=== PATIENT | male | born 1945 | race Caucasian/White ===

== ENCOUNTER 2016-12-05 08:54 | Outpatient (CLI) | payer MEDICARE, BC ==
--- NOTE | 2016-12-05 10:05 | RAD ---
TWO VIEW CHEST: Indication: Pre-operative assessment. FINDINGS: There is no lobar consolidation. Cardiac silhouette is upper limits of normal in size. IMPRESSION: No acute process. POS: DENISSE
[2016-12-05 10:32] LABS: Mean Platelet Volume 7.7 fL (7.4-10.4); Red Blood Cell (RBC) Count 4.57 mill/uL (4.70-6.10); White Blood Cell (WBC) Count 6.1 thou/uL (4.8-10.8)
[2016-12-05 10:42] LABS: PTT 29.6 SEC (22.9-36.1); Prothrombin Time 12.8 SEC (12.0-14.7)
[2016-12-05 10:45] LABS: Anion Gap 11 mmol/L (10-20); BUN (Urea Nitrogen) 18 mg/dL (8.4-25.7); Calc. Creatinine Clearance 0 mL/min (70-130); Calcium 9.6 mg/dL (7.8-10.44); Carbon Dioxide 27 mmol/L (23-31); Chloride 106 mmol/L (98-107); Estimated GFR-MDRD 83
[2016-12-05 10:49] LABS: Bilirubin Negative (Negative); Blood, Urine Negative (Negative); Glucose, Urine (Dipstick) Negative (Negative); Ketone, Urine Negative (Negative); Nitrite Negative (Negative); Protein, Urine (Dipstick) Negative (Neg-Trace); Urobilinogen 0.2 mg/dL (0.2-1.0)
[2016-12-05 11:42] LABS: Bacteria/HPF None Seen HPF (None Seen); Hyaline Casts/LPF 0-3 HYALINE CAST LPF (0-3 Hyaline); RBC/HPF 0-3 HPF (0-3); Squamous Epithelial None Seen HPF (0-3); WBC/HPF None Seen HPF (0-3)
--- NOTE | 2016-12-05 15:09 | EKG ---
Test Reason : Blood Pressure : / mmHG Vent. Rate : 077 BPM Atrial Rate : 077 BPM P-R Int : 166 ms QRS Dur : 068 ms QT Int : 390 ms P-R-T Axes : 064 065 038 degrees QTc Int : 441 ms Poor data quality, interpretation may be adversely affected Sinus rhythm with Premature supraventricular complexes and Premature ventricular complexes or Fusion complexes Otherwise normal ECG Repeat ECG. Confirmed by VINCENZO VILLAFANA ([id number]) on 12/05/2016 3:08:27 PM Referred By: ESCOBAR KHALIL Confirmed By:VINCENZO VILLAFANA
== END 2016-12-05 08:55 | disposition home or self-care (01) ==
LOC: LABBT 08:54
PROVIDERS: ATTEND Orthopaedic Surgery
DX: Z01.818 Encounter for other preprocedural examination (principal); M16.12 Unilateral primary osteoarthritis, left hip
CPT/HCPCS: 71020; 80048; 81001; 85027; 85610; 85730; 86850; 86900; 86901; 87081; 93005; 93010

== ENCOUNTER 2016-12-05 09:00 | Inpatient (IN) | payer MEDICARE, BC ==
[2016-12-05 12:32] VITALS: BMI 28.6
[2016-12-12] MEDS ORDERED: CEFAZOLIN/Water 2 GM/20 ML SYRINGE ONE (06:10)
[2016-12-12] MEDS ORDERED: Tranexamic Acid 1,000 MG/100 ML BAG ONE ×2 (06:10→08:47)
[2016-12-12] MEDS ORDERED: Midazolam HCl 2 mg/2 ml Vial ONE ×2 (06:21→06:50)
[2016-12-12] MEDS ORDERED: Fentanyl 100 MCG/2 ML VIAL ONE (06:21)
[2016-12-12] MEDS ORDERED: Fentanyl 250 MCG/5 ML VIAL ONE (06:50)
[2016-12-12] MEDS ORDERED: traMADol HCl 50 MG TAB PO PRN ×3 (06:53→09:15)
[2016-12-12] MEDS ORDERED: Fentanyl 100 MCG/2 ML VIAL SLOW IVP PRN ×2 (06:53)
[2016-12-12] MEDS ORDERED: HYDROcodone/Acetaminophen 10/325 mg Tablet PO PRN ×2 (06:53)
[2016-12-12] MEDS ORDERED: ALPRAZolam 0.25 MG TAB PO PRN (06:55)
[2016-12-12] MEDS ORDERED: Ropivacaine 0.2% HCl/PF 20 ML ONE (06:56)
[2016-12-12] MEDS ORDERED: Glycopyrrolate 0.2 MG/ML 5 ML SYRINGE ONE (07:05)
[2016-12-12] MEDS ORDERED: ePHEDrine/0.9% NaCl/PF SYRINGE 50 mg/10 ml ONE (07:05)
[2016-12-12] MEDS ORDERED: Propofol 200 MG/20 ML VIAL ONE (07:05)
[2016-12-12] MEDS ORDERED: Lidocaine 2% PF 10 ML AMP (For Epidural Use) ONE (07:05)
[2016-12-12] MEDS ORDERED: Dexamethasone 20 MG/5 ML VIAL ONE (07:05)
[2016-12-12] MEDS ORDERED: Ondansetron HCl/PF 4 MG/2 ML Vial ONE (07:05)
[2016-12-12] MEDS ORDERED: Tranexamic Acid 1,000 MG in Sodium Chloride 0.9% 100 ML IVPB SCH (08:45)
--- NOTE | 2016-12-12 09:02 | OP ---
DATE OF PROCEDURE: 12/12/2016 PREOPERATIVE DIAGNOSIS: End-stage bicompartmental osteoarthritis, left hip. POSTOPERATIVE DIAGNOSIS: End-stage bicompartmental osteoarthritis, left hip. PROCEDURE: Press-fit left total hip arthroplasty. SURGEON: See Abad M.D. DIRECTOR OF LABOR RELATIONS: Jonah Domingo PA-C. ANESTHESIA: General via endotracheal tube augmented with indwelling epidural. ESTIMATED BLOOD LOSS: Less than 100. COMPONENTS USED: [facility] press-fit size 3.5 Accolade hip stem with a 52 mm Trident PSL press fit acetabular shell, 36 mm fixed bearing 10 degree polyethylene and a -5, 36 mm V40 metallic femoral head. FINDINGS: End-stage severe degenerative bicompartmental disease, bone on bone arthrosis, periarticu lar osteophyte formation, large serous effusion, and hypertrophic synovium. DRAINS: None. SPECIMENS: None. COMPLICATIONS: None. COUNTS: Correct. INDICATIONS FOR SURGERY: Dayron is a 71-year-old white male who has had progressive left groin and th igh pain amplified the last 5-7 years. He has failed conservative management and elected to proceed with total hip arthroplasty as definitive treatment of pain. PROCEDURE IN DETAIL: After informed consent was obtained in the preoperative holding area, the lilly ent was taken to the operative suite where general anesthesia was induced. The patient was then pos itioned in the lateral decubitus position. The hip was then prepped and draped in usual sterile fas hion. The patient received preoperative antibiotics. Prior to incision, time-out was called and al l members of the surgical team agreed upon site, surgeon, and patient. After this, a longitudinal i ncision was made directly over the trochanter, noted by palpation extending 2 fingerbreadths above a nd below the trochanter. The deeper subcutaneous layer was undermined with Bovie electrocautery. T he iliotibial band was encountered and incised sharply and the plane below this was developed bluntl y. A Charnley retractor was placed to hold this opened. The lateral aspect of the trochanter and t he abductor muscles were encountered and then reflected anteriorly off the trochanter using Bovie el ectrocautery. Once this was completed, the anterior capsule was then encountered and identified and copious capsulotomy was carried out, exposing the femoral neck and head. Dislocation maneuver was t hen performed and an in situ provisional neck cut was then made using the oscillating saw. Attentio n was then turned to acetabular preparation and sequential reaming was carried out up to the appropr iate diameter and a trial was then malleted into place with good firm resistance and no pullout. Th e permanent acetabular shell was then malleted squarely into place, as was the appropriate liner. O nce completed, the wound was copiously irrigated and attention was then turned to femoral preparatio n. Flexion and external rotation was performed of the exposed thigh and femoral elevators were then placed at the proximal aspect of the wound. Canal finder was used to establish the length of the ca nal and sequential reaming was carried out, followed by broaching. Once the appropriate stability w as established with the trial broaches with both flexion, extension and rotational stability, we did trial with neutral and 2 mm offset incremental necks. Once the appropriate size was decided upon, with good stability noted with flexion, extension, internal and external rotation and shuck being ne gative, we removed the femoral trial broach and malletted into place the permanent prosthesis with g ood firm fit, which was also stable to rotation. Again, the hip felt very stable to flexion, extens ion, internal and external rotation. Leg lengths appeared near anatomic clinically and we were quit e happy with prosthesis placement. Copious irrigation was then carried out through the entirety of the wound. Primary closure of the abductors was accomplished with interrupted #2 Vicryl figure-of-e ight stitches and the IT band was then closed with interrupted #2 Vicryl, oversewn with a #2 running barbed Quill stitch. Subcutaneous fascia was closed with running barbed Quill stitch and a subcuti cular Monocryl barbed Quill stitch was used for skin closure and augmented with skin cement. A ster ile dressing was applied. The procedure was terminated without any complication. All counts were co rrect. The patient was awakened in the operative suite and taken to the recovery room in stable con dition.
[2016-12-12] MEDS ORDERED: Fentanyl/Bupivacaine 250 ML EPIDURAL ONE (09:10)
[2016-12-12] MEDS ORDERED: Ondansetron HCl/PF 4 MG/2 ML Vial IVP PRN (09:15)
[2016-12-12] MEDS ORDERED: diphenhydrAMINE 50 MG/ML VIAL IM PRN (09:15)
[2016-12-12] MEDS ORDERED: Promethazine HCl 25 MG/ML VIAL IM PRN (09:15)
[2016-12-12] MEDS ORDERED: Eucerin (Mineral Oil/Petrolatum,White) 30 gm Jar TOP PRN (09:15)
[2016-12-12] MEDS ORDERED: Zolpidem Tartrate 5 MG TAB PO PRN (09:15)
[2016-12-12] MEDS ORDERED: HYDROcodone/Acetaminophen 5/325 mg Tablet PO PRN (09:15)
[2016-12-12] MEDS ORDERED: Naloxone HCl 0.4 mg/ml Vial IVP PRN (09:15)
[2016-12-12] MEDS ORDERED: diphenhydrAMINE 50 MG/ML VIAL IVP PRN (09:15)
[2016-12-12] MEDS ORDERED: Fentanyl/Bupivacaine 250 ML in Premix Bag 1 BAG EPIDURAL SCH (09:15)
[2016-12-12] MEDS ORDERED: Promethazine HCl 25 MG SUPP PR PRN (09:15)
[2016-12-12] MEDS ORDERED: Bupivacaine 0.25% 10 ML VIAL EPIDURAL PRN (09:15)
[2016-12-12] MEDS ORDERED: Naloxone HCl 0.4 mg/ml Vial IV PRN (09:15)
--- NOTE | 2016-12-12 09:33 | RAD ---
LEFT HIP 2 VIEWS: Date: 12/12/16 HISTORY: Postop. FINDINGS: The patient has had a total hip prosthesis placed, which is in good position. No signs of fracture. IMPRESSION: Placement of left total hip prosthesis. POS: OFF
[2016-12-12] MEDS: Dextrose 5 %-0.45 % NaCl 1,000 ML IV SCH ×2 (10:15→15:02)
[2016-12-12] MEDS: Lisinopril/Hydrochlorothiazide 20 mg/12.5 mg Tablet PO SCH (10:16)
[2016-12-12] MEDS: Multivit, Therapeutic 1 TAB PO SCH (10:16)
[2016-12-12] MEDS: Loratadine 10 MG TAB PO SCH (10:16)
--- NOTE | 2016-12-12 13:23 | CON ---
DATE OF CONSULTATION: 12/12/2016 PRIMARY CARE PHYSICIAN: Dr. Rip Huerta CHIEF COMPLAINT: Consult for medical management after hip replacement. HISTORY OF PRESENT ILLNESS: This is a 71-year-old male with left hip arthritis who presented to the hospital for a scheduled hip replacement. He underwent surgery this morning and apparently did wel l. He denies pain at this time. His other medical problems include hypertension, hypercholesterole kimberli and anxiety. While here in the hospital, his blood pressure has been within normal limits. He has no complaints today. ALLERGIES: DARVOCET. MEDICATIONS: 1. Alprazolam 0.5 mg p.o. at bedtime p.r.n. sleep. 2. Pravastatin 10 mg p.o. daily. 3. Aspirin 81 mg p.o. daily. 4. Lisinopril/hydrochlorothiazide 20/12.5 mg 1/2 tab p.o. daily. 5. Amlodipine 10 mg p.o. daily. 6. Protonix 10 mg p.o. daily. 7. Fluticasone 50 mcg 2 sprays each side nasally once a day. 8. Glucosamine chondroitin 500/400 mg 1 capsule daily. 9. Citalopram 20 mg p.o. daily. PAST MEDICAL HISTORY: As above. PAST SURGICAL HISTORY: 1. Left hip replacement today. 2. Appendectomy. 3. Vasectomy. FAMILY HISTORY: Hypertension, diabetes. SOCIAL HISTORY: Denies tobacco, alcohol and illicit drugs. REVIEW OF SYSTEMS: GENERAL: Denies fever, weight change, appetite change. HEENT: Denies headache, vision changes, sore throat, dysphagia. SKIN: Denies rashes and lesions. CARDIOVASCULAR: Denies chest pain, palpitations. RESPIRATORY: Denies shortness of breath and cough. GASTROINTESTINAL: Denies nausea, vomiting, abdominal pain, diarrhea, constipation. GENITOURINARY: Denies dysuria, hematuria, and discharge. MUSCULOSKELETAL: Reports current left hip numbness. Otherwise, no joint stiffness or swelling. NEUROLOGIC: Denies syncope and dizziness. PHYSICAL EXAMINATION: VITAL SIGNS: Temperature 97.0, pulse 65, respirations 16, oxygen saturation 92% on room air, blood pressure 100/67. LABORATORY AND X-RAY FINDINGS: None. ASSESSMENT AND PLAN: 1. Left hip osteoarthritis status post left hip replacement. Plan per Orthopedic Surgery. We will continue to do physical therapy and rehab here in the hospital. Pain is well controlled at this ti me. 2. Hypertension. Continue home medications. Blood pressure is within normal limits. 3. Hyperlipidemia. Continue pravastatin. 4. Anxiety. Continue Xanax once a day at night. DISPOSITION: The patient is stable currently. Blood pressure is well controlled. From my standpoi nt, he is safe to be discharged as soon as he is cleared by Orthopedic Surgery over the next couple days.
[2016-12-12] MEDS: Ketorolac Tromethamine 30 MG/ML VIAL IVP SCH ×3 (14:37→23:48)
[2016-12-12] MEDS: CEFAZOLIN/Water 2 GM/20 ML SYRINGE SLOW IVP SCH ×2 (14:39→22:15)
[2016-12-12] MEDS: Citalopram 20 MG TAB PO SCH (15:01)
[2016-12-12] MEDS: Fluticasone Propionate Nasal Spray 16 gm Bottle NASAL SCH (15:01)
[2016-12-12] MEDS: Simvastatin 5 MG TAB PO SCH (22:14)
[2016-12-13] MEDS: Dextrose 5 %-0.45 % NaCl 1,000 ML IV SCH ×3 (03:22→23:30)
[2016-12-13] MEDS: Ketorolac Tromethamine 30 MG/ML VIAL IVP SCH ×4 (06:13→23:42)
[2016-12-13 06:39] LABS: Hematocrit 36.5 % (42.0-52.0); Mean Platelet Volume 7.6 fL (7.4-10.4); Red Blood Cell (RBC) Count 3.88 mill/uL (4.70-6.10); White Blood Cell (WBC) Count 12.3 thou/uL (4.8-10.8)
--- NOTE | 2016-12-13 07:56 | PRG ---
DATE OF SERVICE: 12/13/2016 SUBJECTIVE: The patient is sitting up in chair comfortably. Denies pain at this time. He has pass ed gas postoperatively. PHYSICAL EXAMINATION: VITAL SIGNS: Temperature 98.0, pulse 84, respirations 16, oxygen saturation 96% on room air, blood pressure 113/62. GENERAL: Alert and oriented x3 with no acute distress. HEENT: Normocephalic. Pupils equally round and reactive to light. Extraocular muscles intact. HEART: Regular rate and rhythm, no murmurs. LUNGS: Clear to auscultation bilaterally. ABDOMEN: Soft, nontender, nondistended. Bowel sounds heard throughout. SKIN: No rashes or lesions. MUSCULOSKELETAL: Left hip is covered with a bandage. Moving joints well. LABORATORY DATA: White blood cell count 12.3, hemoglobin 12.2, hematocrit 36.5, MCV 94.0. ASSESSMENT AND PLAN: 1. Left hip osteoarthritis status post left hip replacement. He is apparently doing well with [facility]. He will continue physical therapy post-discharge. Pain is well controlled at this ti sd. 2. Hypertension. Blood pressure has been within normal limits on his home medications. 3. Hyperlipidemia. Continue pravastatin. 4. Anxiety. Continue Xanax at bedtime.
[2016-12-13] MEDS: Lisinopril/Hydrochlorothiazide 20 mg/12.5 mg Tablet PO SCH (09:32)
[2016-12-13] MEDS: Citalopram 20 MG TAB PO SCH (09:32)
[2016-12-13] MEDS: Multivit, Therapeutic 1 TAB PO SCH ×2 (09:32→09:34)
[2016-12-13] MEDS: Loratadine 10 MG TAB PO SCH ×2 (09:32→09:34)
[2016-12-13] MEDS: HYDROcodone/Acetaminophen 5/325 mg Tablet PO PRN (17:38)
[2016-12-13] MEDS: Fluticasone Propionate Nasal Spray 16 gm Bottle NASAL SCH (17:48)
[2016-12-13] MEDS: diphenhydrAMINE 25 MG CAP PO PRN ×2 (18:55→23:51)
[2016-12-13] MEDS: Simvastatin 5 MG TAB PO SCH (20:25)
[2016-12-14] MEDS: Ketorolac Tromethamine 30 MG/ML VIAL IVP SCH (05:10)
[2016-12-14 06:43] LABS: Hematocrit 34.7 % (42.0-52.0); Mean Platelet Volume 7.6 fL (7.4-10.4); Red Blood Cell (RBC) Count 3.67 mill/uL (4.70-6.10); White Blood Cell (WBC) Count 9.5 thou/uL (4.8-10.8)
[2016-12-14] MEDS: Loratadine 10 MG TAB PO SCH (07:47)
[2016-12-14] MEDS: Multivit, Therapeutic 1 TAB PO SCH (07:47)
[2016-12-14] MEDS: Citalopram 20 MG TAB PO SCH (07:47)
[2016-12-14] MEDS: Lisinopril/Hydrochlorothiazide 20 mg/12.5 mg Tablet PO SCH (07:47)
[2016-12-14 07:50] VITALS: BP 103/64
[2016-12-14] MEDS: Fluticasone Propionate Nasal Spray 16 gm Bottle NASAL SCH (07:52)
[2016-12-14] MEDS: Dextrose 5 %-0.45 % NaCl 1,000 ML IV SCH (07:52)
[2016-12-14] MEDS: HYDROcodone/Acetaminophen 5/325 mg Tablet PO PRN ×2 (09:45→15:07)
[2016-12-14 10:51] VITALS: TEMP 98.3
== END 2016-12-14 15:36 | disposition home or self-care (01) | DRG 470 ==
LOC: SURG A 12-12 05:56 → SJJU 12-12 08:53
PROVIDERS: ADMIT Orthopaedic Surgery; ATTEND Orthopaedic Surgery
PROC: 0SRB02A Replacement of Left Hip Joint with Metal on Polyethylene Synthetic Substitute, Uncemented, Open Approach (ICD-10-PCS; principal; 2016-12-12)
PROC: 3E0T3BZ Introduction of Anesthetic Agent into Peripheral Nerves and Plexi, Percutaneous Approach (ICD-10-PCS; 2016-12-12)
DX: M16.12 Unilateral primary osteoarthritis, left hip (principal); I10 Essential (primary) hypertension; M25.452 Effusion, left hip; E78.5 Hyperlipidemia, unspecified; F41.9 Anxiety disorder, unspecified; Z88.5 Allergy status to narcotic agent; Z79.82 Long term (current) use of aspirin
CPT/HCPCS: 36415; 85027; C1776; G8978-GP-CJ; G8979-GP-CI; G8987-GO-CK; G8988-GO-CI; J1100; J1885; J2001; J2250; J2405; J2550; J2704; J2795; J3010; J3370

== ENCOUNTER 2016-12-18 13:51 | Outpatient (CLI) | payer MEDICARE, BC ==
--- NOTE | 2016-12-18 17:02 | ULT ---
LEFT LOWER EXTREMITY VENOUS DOPPLER ULTRASOUND: Date: 12-18-16 Comparison: None. History: Left hip replacement. Left leg swelling, assess for DVT. Left lower extremity edema. Technique: Multiplanar grayscale sonographic imaging of the venous structures of the left lower extr emity obtained with color flow and spectral analysis. FINDINGS: Left common femoral vein, greater saphenous vein, profunda femoral vein, femoral vein, popliteal vei n and posterior tibial vein are patent. There is normal blood flow, compression, and augmentation wi thin the left lower extremity deep venous structures. No evidence for DVT. IMPRESSION: No evidence for deep venous thrombosis of the left lower extremity. POS: [facility]
== END 2016-12-18 13:52 | disposition home or self-care (01) ==
LOC: SCSULT 13:51
PROVIDERS: ATTEND Orthopaedic Surgery
DX: M79.89 Other specified soft tissue disorders (principal)

== ENCOUNTER 2018-08-19 09:03 | Outpatient (CLI) | payer MEDICARE ==
[2018-08-19 10:44] LABS: Hemoglobin 14.2 g/dL (14.0-18.0); Mean Corpuscular HGB CONC 33.8 g/dL (32.0-36.0); Mean Corpuscular Hemoglobin 31.3 pg (27.0-31.0); Mean Corpuscular Volume 92.7 fL (78.0-98.0); Mean Platelet Volume 7.5 fL (7.4-10.4); Platelet Count 219 thou/uL (130-400); RBC Distribution Width 12.8 % (11.5-14.5); Red Blood Cell (RBC) Count 4.52 mill/uL (4.70-6.10); White Blood Cell (WBC) Count 6.3 thou/uL (4.8-10.8)
[2018-08-19 10:53] LABS: INR-International Normal Ratio 0.9; PTT 29.1 SEC (22.9-36.1); Prothrombin Time 11.8 SEC (12.0-14.7)
[2018-08-19 11:09] LABS: Anion Gap 11 mmol/L (10-20); BUN (Urea Nitrogen) 18 mg/dL (8.4-25.7); Calc. Creatinine Clearance 0 mL/min (70-130); Calcium 9.4 mg/dL (7.8-10.44); Carbon Dioxide 27 mmol/L (23-31); Chloride 104 mmol/L (98-107); Estimated GFR-MDRD 82; Glucose 95 mg/dL (83-110); Potassium 4.3 mmol/L (3.5-5.1); Sodium 138 mmol/L (136-145)
[2018-08-19 11:11] LABS: Bilirubin Negative (Negative); Blood, Urine Negative (Negative); Clarity CLEAR (Clear); Glucose, Urine (Dipstick) Negative (Negative); Leukocyte Negative (Negative); Nitrite Negative (Negative); Protein, Urine (Dipstick) Negative (Neg-Trace); Urobilinogen 0.2 mg/dL (0.2-1.0)
[2018-08-19 11:16] LABS: Bacteria/HPF None Seen HPF (None Seen); Hyaline Casts/LPF 0-3 HYALINE CAST LPF (0-3 Hyaline); Squamous Epithelial None Seen HPF (0-3); WBC/HPF None Seen HPF (0-3)
== END 2018-08-19 09:04 | disposition home or self-care (01) ==
LOC: LABBT 09:03
PROVIDERS: ATTEND Urology
DX: Z01.818 Encounter for other preprocedural examination (principal); N52.01 Erectile dysfunction due to arterial insufficiency; N40.1 Benign prostatic hyperplasia with lower urinary tract symptoms
CPT/HCPCS: 80048; 81001; 85027; 85610; 85730; 87086; 93005; 93010

== ENCOUNTER 2018-08-29 06:08 | Day surgery (SDC) | payer MEDICARE ==
[2018-08-19 09:46] VITALS: BMI 29.0
[2018-08-29] MEDS ORDERED: Levofloxacin 500 mg/D5W 100 ml Premix Bag ONE (06:48)
[2018-08-29] MEDS ORDERED: Fentanyl 100 MCG/2 ML VIAL ONE (07:02)
[2018-08-29] MEDS ORDERED: Midazolam HCl 2 mg/2 ml Vial ONE (07:15)
[2018-08-29] MEDS ORDERED: Morphine 2 MG/ML SYRINGE ONE (09:44)
[2018-08-29] MEDS ORDERED: Morphine 4 MG/ML VIAL ONE (10:05)
[2018-08-29] MEDS ORDERED: B & O ONE (10:06)
--- NOTE | 2018-08-29 10:10 | OP ---
DATE OF PROCEDURE: 08/29/2018 SERVICE: Urology. PREOPERATIVE DIAGNOSIS: BPH with urinary obstruction. POSTOPERATIVE DIAGNOSIS: BPH with urinary obstruction. PROCEDURE PERFORMED: UroLift procedure. INDICATION FOR PROCEDURE: Mr. Barillas is a 73-year-old white male with BPH and obstructive symptoms. He does not wish to be on medications and did not wish to undergo a TURP or vaporization. We discussed the UroLift procedure, which he has a lot of interest in. Risks and benefits were discussed and he has agreed to proceed forward. DESCRIPTION OF PROCEDURE: After identification of armband and verification of consent, the patient was brought back to the operating room, where he underwent total intravenous anesthesia. He was then placed in dorsal lithotomy position and prepped and draped in usual sterile fashion. After appropriate time-out, a lubricated 21-Croatian visual obturator was passed through the urethra into the bladder. The prostate demonstrated a high bladder neck and bilobar hypertrophy. The UroLift device was then brought in and the first implant placed on the right lateral lobe of the prostate, closer toward the bladder neck. Approximately 20 degrees of compression with an anterior placement was selected. The needle was deployed by firing the blue trigger and the stitch deployed. The scope was then advanced forward until the white line was in the keyhole and then the steel tab deployed. This was then repeated on the right side near the bladder neck and again toward the verumontanum on both sides. At this point, there still appeared to be some lateral lobe obstruction on the right side. We attempted to fire another UroLift device to get rid of this lateral lobe. Unfortunately, the device was too close to the bladder neck, which required removal using the DVIU set and a flexible grasper. This did result in removal of both Nitinol tab suture and steel tab in its entirety. An additional implant was then fired on the left side, approximately half-way between the original implant toward the bladder neck and the verumontanum, resulting in a good movement of the prostatic channel open. Upon completion, there was a significant amount of mucosal trauma secondary to the multiple scope manipulations, but the prostate did appear open. Bleeding was not significant, but due to the mucosal trauma, I felt that it would be best to leave a catheter in, in this individual for a few days to allow for healing. The prostate channel did appear open. The scope was then removed and an 18-Croatian Houston catheter was placed with ease into the bladder. 10 mL of sterile water was placed into the balloon. The catheter was flushed and then connected to gravity drainage. The patient was then awakened and taken to Day Stay for recovery in stable condition. COMPLICATIONS: None. ESTIMATED BLOOD LOSS: Minimal. RETAINED TUBES AND DRAINS: 18-Croatian Houston catheter. SPECIMENS: None. DISPOSITION: The patient will be discharged home and will follow up with me on Sunday for a void trial. After which point, we can keep his postop check as scheduled. Job ID: [id number]
[2018-08-29] MEDS ORDERED: Hyoscyamine Sulfate SL 0.125 mg Tablet ONE (10:21)
== END 2018-08-29 12:12 | disposition home or self-care (01) ==
LOC: SDC 06:08
PROVIDERS: ATTEND Urology
PROC: 0T7D8DZ Dilation of Urethra with Intraluminal Device, Via Natural or Artificial Opening Endoscopic (ICD-10-PCS; principal; 2018-08-29)
DX: N40.1 Benign prostatic hyperplasia with lower urinary tract symptoms (principal); N13.8 Other obstructive and reflux uropathy
CPT/HCPCS: C1889; C9739; J1956; J2250; J2270; J3010

== ENCOUNTER 2018-10-08 13:14 | Emergency (ER) | payer MEDICARE, OTHER ==
[2018-10-08] MEDS ORDERED: Adacel (T-DAP) 0.5 ML SYRINGE ONE (13:28)
== END 2018-10-08 13:48 | disposition home or self-care (01) ==
LOC: SCSER 13:14
DX: S01.111A Laceration without foreign body of right eyelid and periocular area, initial encounter (principal); K21.9 Gastro-esophageal reflux disease without esophagitis; E78.5 Hyperlipidemia, unspecified; E78.00 Pure hypercholesterolemia, unspecified; I10 Essential (primary) hypertension; F41.9 Anxiety disorder, unspecified; Z87.891 Personal history of nicotine dependence; Z79.899 Other long term (current) drug therapy; W26.8XXA Contact with other sharp object(s), not elsewhere classified, initial encounter
CPT/HCPCS: 12011; 90471; 90715